=== PATIENT | male | born 1945 | race Caucasian/White ===

== ENCOUNTER → 2020-09-14 | Outpatient (CLI) | payer MEDICARE ==
--- NOTE | 2020-09-14 17:27 | MR ---
EXAMINATION TYPE: MR knee RT wo con DATE OF EXAM: 09/14/2020 COMPARISON: None HISTORY: 7 a 5-year-old male Right knee pain, internal derangement, osteoarthritis TECHNIQUE: Multiplanar, multisequence imaging of the right knee is performed without IV contrast. FINDINGS: The PCL is thickened with abnormal signal and poorly defined. Some increased signal is present along the ACL but intact fibers are visualized. MCL is intact. Some increased signal and overlying edema of the proximal LCL proper. There is some fluid along the p opliteus myotendinous junction. Otherwise, LCL complex appears intact. Tear involving the junction of the posterior horn and body of the medial meniscus. Mild to moderate superficial irregular cartilage loss along the mid central aspect of the medial femo ral condyle. Minimal interval margin fraying of the body of the lateral meniscus without discrete tear. Overall la teral compartment articular cartilage appears maintained. Patellofemoral compartment articular cartilage appears maintained. Extensor mechanism is intact. Prominent anterior soft tissue swelling. There is a moderate knee joint effusion. Moderate-sized leaking Lomeli cyst is demonstrated measuring 5.5 x 2.7 cm. Trace fluid within the deep infrapatellar bursa. Incidental 1.8 cm ganglion at the orig in of the medial head gastrocnemius. Normal popliteal artery anatomy. Some generalized muscle atrophy is noted. No suspicious bone marrow replacement. IMPRESSION: 1. The PCL is torn. 2. Grade 1 sprain of the proximal LCL proper. Suspect some tearing along the popliteus myotendinous j unction as well. 3. Tear at the junction of the posterior horn and body of the medial meniscus. Mild degenerative ho ge within the medial compartment with a focal area of moderate thickness cartilage loss along the mid central aspect of the medial femoral condyle. 4. Prominent anterior soft tissue swelling. Moderate knee joint effusion. Moderate-sized leaking Bake r cyst measuring 5.5 cm.
== END | disposition home or self-care (01) ==
LOC: RADMRIMAIN 06:39
PROVIDERS: ATTEND Orthopaedic Surgery
DX: S83.421A Sprain of lateral collateral ligament of right knee, initial encounter (principal); S83.521A Sprain of posterior cruciate ligament of right knee, initial encounter; M23.321 Other meniscus derangements, posterior horn of medial meniscus, right knee; M71.21 Synovial cyst of popliteal space [Baker], right knee; M17.11 Unilateral primary osteoarthritis, right knee